=== PATIENT | female | born 1990 | race Caucasian/White ===

== ENCOUNTER 2017-10-07 10:37 | Emergency (ER) | payer OTHER ==
[~2017-10-07] VITALS: Wt 55.9 kg
[2017-10-07 10:39] VITALS: TEMP 97.6
[2017-10-07] MEDS ORDERED: MAG-OX 400400 MG/TAB PO (11:19)
[2017-10-07] MEDS ORDERED: ROBAXIN 50500 MG/TAB PO (11:19)
[2017-10-07] MEDS ORDERED: YAZ 28 3 MG-0.01 TAB PO (11:20)
[2017-10-07] MEDS ORDERED: NICODERM C7 MG/PATCH TD (11:20)
[2017-10-07] MEDS ORDERED: XANAX 0.5MG0.5 MG PO (11:20)
[2017-10-07] MEDS ORDERED: INDERAL 10MG10 MG PO (11:21)
[2017-10-07] MEDS ORDERED: LEXAPRO 10MG10 MG PO (11:21)
[2017-10-07 11:34] LABS: COLLECTION METHOD CLEAN CATCH
[2017-10-07 11:41] LABS: MUCOUS Present /lpf; PH 6 (5-8); SQUAMOUS EPITHELIAL 0-2 /hpf; URINE APPEARANCE Hazy; URINE BACTERIA None Seen /hpf; URINE BILIRUBIN Negative (NEGATIVE); URINE BLOOD Negative (NEGATIVE); URINE COLOR Yellow; URINE GLUCOSE Negative (NEGATIVE); URINE KETONE Negative (NEGATIVE); URINE LEUKOCYTE ESTERASE Negative (NEGATIVE); URINE NITRATE Negative (NEGATIVE); URINE PROTEIN(semi-quant) Negative (NEGATIVE); URINE RBC None Seen /hpf; URINE UROBILINOGEN Negative (NEGATIVE)
[2017-10-07 11:44] LABS: BASO % 0.4 % (0.0-2.0); EOS # 0.1 (0.0-0.7); EOS % 1.2 % (0-4.0); GRAN # 3.9 (1.4-6.5); GRAN % 57.9 % (42.2-75.2); HEMOGLOBIN 12.5 g/dl (12.5-16.0); LYMPH # 2.4 (1.2-3.4); MEAN CELL VOLUME 85 fl (80.0-100.0); MEAN CORPUSCULAR HEMOGLOBIN 30 pg (27.0-31.0); MEAN CORPUSCULAR HGB CONC 35 g/dl (33.0-37.0); MONO # 0.4 (0.1-0.6); MONO % 5.2 % (1.7-9.3); PLATELET COUNT 182 K/mm3 (130-400); RED BLOOD COUNT 4.22 M/mm3 (4.10-5.30); REDCELL DISTRIBUTION WIDTH-CV 12.4 % (11.5-14.5)
[2017-10-07 11:46] LABS: HEMATOCRIT 35.8 % (37.0-47.0)
[2017-10-07 11:56] LABS: ALANINE AMINOTRANSFERASE 23 U/L (9-52); ALBUMIN 4.1 gm/dL (3.5-5.0); ALKALINE PHOSPHATASE 48 U/L (50-136); ANION GAP 12 mmol/L (7-16); AST,SGOT 26 U/L (15-37); BILIRUBIN,TOTAL 0.4 mg/dL (0.0-1.0); BLOOD UREA NITROGEN 12 mg/dL (7-17); C-REACTIVE PROTEIN < 0.5 mg/dL (0.0-0.9); CALCIUM 9.1 mg/dL (8.4-10.2); CARBON DIOXIDE 25 mmol/L (22-30); CHLORIDE 104 mmol/L (98-107); CREATININE, serum 0.87 mg/dL (0.52-1.25); GLUCOSE 80 mg/dL (74-106); POTASSIUM 4.3 mmol/L (3.4-5.0); SODIUM 141 mmol/L (137-145); TOTAL PROTEIN 7.6 gm/dL (6.4-8.2)
[2017-10-07 13:55] VITALS: BP 106/65; PULSE 59
== END 2017-10-07 13:59 | disposition home or self-care (01) ==
LOC: COL.ER 10:37
PROVIDERS: Emergency Medicine
DX: M54.2 Cervicalgia (principal); R51 Headache
CPT/HCPCS: J1200; J1630; J1885; J7030

== ENCOUNTER → 2017-12-29 | Outpatient (CLI) | payer OTHER ==
[~2017-12-29] MED LIST: INDERAL 10MG10 MG PO; LEXAPRO 10MG10 MG PO; MAG-OX 400400 MG/TAB PO; NICODERM C7 MG/PATCH TD; ROBAXIN 50500 MG/TAB PO; XANAX 0.5MG0.5 MG PO; YAZ 28 3 MG-0.01 TAB PO
== END ==
LOC: COL.RAD 09:10
DX: G43.109 Migraine with aura, not intractable, without status migrainosus (principal); M26.609 Unspecified temporomandibular joint disorder, unspecified side; M54.2 Cervicalgia
CPT/HCPCS: A9585

== ENCOUNTER → 2018-01-09 | Outpatient (CLI) | payer OTHER | LOC: COL.CARD 09:53 | DX: G43.109 Migraine with aura, not intractable, without status migrainosus (principal); M26.609 Unspecified temporomandibular joint disorder, unspecified side ==

== ENCOUNTER 2018-01-26 11:00 | Outpatient (RCR) | payer OTHER | END 2018-02-01 | disposition home or self-care (01) | LOC: MKS.ESL.PT | DX: R51 Headache (principal); G24.09 Other drug induced dystonia ==

== ENCOUNTER 2019-05-21 06:04 | Day surgery (SDC) | payer OTHER ==
[~2019-05-21] VITALS: Ht 152.4 cm; Wt 53.1 kg
[2019-05-21 06:42] VITALS: BP 109/66; PULSE 68; TEMP 97
[2019-05-21] MEDS ORDERED: LAMICTAL150 MG PO (06:50)
[2019-05-21] MEDS ORDERED: ALDACTONE 100M100 MG PO (06:51)
[2019-05-21] MEDS ORDERED: VITAMIN D3400 I1 PO (06:52)
[2019-05-21] MEDS ORDERED: MAGNESIUM250 M1 PO (06:53)
[2019-05-21 07:40] VITALS: BP 110/61; PULSE 61; TEMP 96.8
--- NOTE | 2019-05-21 07:40 | NUR ---
pt to endo #1 via cart, walked to chair, in room, call light in reach. takes juice and muffin, no c/o
[2019-05-21 07:55] VITALS: BP 100/73; PULSE 68
--- NOTE | 2019-05-21 08:02 | NUR ---
into see pt and
[2019-05-21 08:10] VITALS: BP 104/55; PULSE 52
--- NOTE | 2019-05-21 08:10 | NUR ---
REVIEWED DISCHARGE INST. WITH PT AND ON ACTIVITY, PENDING RESULTS AND PRECAUTIONS. WILL START ON PRILOSEC ORDERED, WITH VERBAL UNDERSTANDING. IV D'CD INTACT
--- NOTE | 2019-05-21 08:30 | NUR ---
PT UP IN ROOM DRESSED, DISCHARGED VIA W/C TO CAR WITH
== END 2019-05-21 08:30 | disposition home or self-care (01) ==
LOC: SDCO 06:04
DX: K59.00 Constipation, unspecified (principal); K21.9 Gastro-esophageal reflux disease without esophagitis; F41.9 Anxiety disorder, unspecified; F32.9 Major depressive disorder, single episode, unspecified; K29.30 Chronic superficial gastritis without bleeding; K58.0 Irritable bowel syndrome with diarrhea; G43.909 Migraine, unspecified, not intractable, without status migrainosus; Z88.8 Allergy status to other drugs, medicaments and biological substances; Z88.0 Allergy status to penicillin; Z80.51 Family history of malignant neoplasm of kidney; Z83.79 Family history of other diseases of the digestive system; Z87.891 Personal history of nicotine dependence
CPT/HCPCS: J2704; J7030